=== PATIENT | male | born 1970 | race African-American/Black ===

== ENCOUNTER 2017-05-16 03:03 | Emergency (ER) | payer SELFPAY ==
[~2017-05-16] VITALS: Ht 172.7 cm; Wt 73.0 kg
[2017-05-16 03:09] VITALS: BP 165/83
== END 2017-05-16 04:53 | disposition left against medical advice (07) ==
LOC: ER 03:03
DX: R10.9 Unspecified abdominal pain (principal); Z53.21 Procedure and treatment not carried out due to patient leaving prior to being seen by health care provider